=== PATIENT | female | born 1955 | race African-American/Black ===

== ENCOUNTER 2025-02-11 13:51 | Emergency (ER) | payer OTHER, SELFPAY ==
[2025-02-11 13:56] VITALS: BP 123/66
--- NOTE | 2025-02-11 15:35 | ED.GENMED ---
History of Present Illness
General
Chief Complaint: Social Service Referral
Source: patient and ambulance crew
Exam Limitations: none
Time Seen by Provider: 02/11/25 15:01
Nursing documentation reviewed up to this point in time: agreed with
History of Present Illness
History of Present Illness:
69-year-old female with no reported medical issues presents for evaluation after being found sleeping in the grass by EMS. Patient says 'I was resting on the grass and I fell asleep and the next thing I know they were there talking to me.' She
says that she has been sleeping outside recently because she does not have a place to stay long-term. She says that she previously had been staying with her son. She denies any falls or trauma and has no acute complaints. The triage note mentions
something about right knee issues or a fall�patient says that the medics asked her 'if there was anything wrong with me' and she told them that from time to time her right knee will cause her pain and require her to stop and rest. She denies any
acute issues. She is requesting food and drink and is hoping to speak with someone about prison.
Review of Systems
Review of Systems
All Other Systems: ROS reviewed and negative except as documented in HPI and ROS
Respiratory: Denies trouble breathing
Cardiac: Denies chest pain
ABD/GI: Denies abdominal pain
Musculoskeletal: Denies neck pain or back pain
Neurological: Denies headache
Phy Exam
Physical Exam
Physical Exam:
General: Awake, alert, resting comfortably in bed eating a lunch box and not in any distress
Head: Normocephalic, atraumatic
Eyes: Conjunctiva normal
Throat: Airway intact, handling secretions
Neck: Trachea midline
Lungs: Breathing comfortably no distress, normal respiratory rate, normal pulse ox
Heart: Regular rate
Neuro: No gross deficits
Skin: no rash
Extremities: On exam of the right knee she has no signs of acute trauma, no joint effusion, no joint line tenderness or pain with initiation of patella, full range of motion and she has strong popliteal and DP pulse in the right leg with no edema;
rest of extremities no edema, equal pulses in all extremities
Scores
Heart Failure Risk
Heart Failure Risk Score: Not Applicable
Heart Score for Chest Pain Patients
STEMI patient?: Not applicable
Withdrawal Assessment of Alcohol
Withdrawal Assessment Completed?: Not applicable
Course
Orders/Labs/Results
Orders:
Orders
02/11/25 13:59
CR Knee - Right 1 Or 2 Views Urgent
Comment:
Reason For Exam: pain
02/11/25 15:07
Case Management Consult ONCE
Case Management Consult: Other
Comment: prison resources
Vital Signs
Initial and Last Documented VS:
Initial Vital Signs
Temp Pulse Resp BP Pulse Ox
36.8 C 89 20 123/66 100
02/11/25 13:56 02/11/25 13:56 02/11/25 13:56 02/11/25 13:56 02/11/25 13:56
Last Documented Vital Signs
Temp Pulse Resp BP Pulse Ox
36.8 C 89 20 123/66 100
02/11/25 13:56 02/11/25 13:56 02/11/25 13:56 02/11/25 13:56 02/11/25 13:56
MDM/Problems Addressed
Differential Diagnosis Includes:
Social service referral
MDM/Problems Addressed:
69-year-old female was brought into the emergency room by EMS after being found sleeping in the grass on the side of the road. She says that she has been sleeping outside because she has no place to stay; she says she has no acute complaints.
Medic report mentions something about her right knee knee issue�patient says she has some chronic occasional pains in the right knee but no acute issues. She was taken for an x-ray which showed arthritis but no acute abnormalities. She is
requesting food and drink which we provided. She was requesting to speak with someone about prison and so case management was contacted to speak with her.
Our supportive employment case manager spoke with the patient�unfortunately no shelters available in [place] but she was given resources for other areas as well as money to pay for bus. Provided transport to bus station. Stable for discharge.
*Radiology
Radiology exam reviewed: preliminary read by ED provider and radiology read reviewed
*Pulse Oximetry
Patient hypoxic: no
*Critical Care Note
Total Time (30-74mins, 75-104mins- exclusive of procedures): Not Applicable
Data Reviewed
Source: patient and ambulance crew
Patient Management
Social determinants of health affecting care: Living situation
Discussion with other providers: Other (Discussed with case management)
ED Attending Note
-
Portions of this chart may have been created with voice recognition software.� Occasional wrong word or��sound alike� substitutions may have occurred due to the inherent limitations of voice recognition software.
Discharge Plan
Departure
Patient Disposition: Home (Routine Discharge)
Date of Disposition: 02/11/25
Time of Disposition: 16:22
Patient with high blood pressure during this ER visit?: No
Discharge Problem:
Encounter for medical screening examination
Referrals:
NONE,* [Family Provider] -
Interventions
Interventions:
*Risk Screen - Suicide Last Done: 02/11/25 13:56
*General Assessment Last Done: 02/11/25 13:56
*Neglect/Abuse Screening Last Done: 02/11/25 13:56
*Nursing Disposition Last Done: 02/11/25 17:11
Discharge Date and Time
Discharge Date/Time: 02/11/25 17:12
Print Language: LAO
--- NOTE | 2025-02-11 16:07 | CM ---
Addendum entered by Maty Freed 02/11/25 16:24:
Fee for transportation provided to patient ED to set up transport, bus [place] at 9pm to [place] this [place].
Original Note:
records and information manager reviewed patient's chart and met with patient and patient reports that she was staying with her son, and also has a daughter, per patient her son moves around and she no longer has a number for him. Patient reports that she was brought
in by the police, from [facility] and records and information manager reached out to the Homeless [employer]line [phone] and they stated that patient needs to return to [facility] for assistance, trimming caser will provide fee for bus transport.
Plan; Patient provided with packet for prison option to follow up with.
--- NOTE | 2025-02-12 10:16 | CM ---
ED CM alerted post dc from day prior that pt remains onsite and never left
Meeting with pt in parking garage
She noted she needs a ride to the bus station
Fare that was provided day prior by CM remains intact
CM attempted to provide DART/train schedule to pt
Pt left hospital prior to CM meeting with her again
== END 2025-02-11 17:12 | disposition home or self-care (01) ==
LOC: EMR 13:51
PROVIDERS: EMERGENCY PHYSICIAN Emergency Medicine
DX: Z76.89 Persons encountering health services in other specified circumstances (principal); M17.11 Unilateral primary osteoarthritis, right knee
CPT/HCPCS: 99283; 73560